=== PATIENT | female | born 1965 | race Two or more races ===

== ENCOUNTER → 2016-07-04 | Outpatient (CLI) | payer BC ==
--- NOTE | 2016-07-04 16:22 | EKG ---
[facility] Measurements Intervals [place] Rate: 64 P: 30 MT: 170 QRS: 21 QRSD: 107 T: 41 QT: 403 QTc: 412 Interpretive Statements SINUS RHYTHM NONSPECIFIC T WAVE CHANGE No previous ECG available for comparison Electronically Signed On 07-04-16 20:43:16 MST by Aaron Boss [id number]
[2016-07-05 15:14] LABS: BASOPHILS # (AUTO) 0.07 10*3/UL; BASOPHILS % (AUTO) 1.1 % (0-1); EOSINOPHILS % (AUTO) 5.9 % (0-8); HEMATOCRIT 41.8 % (37.0-47.0); IMM GRAN % (AUTO) 0.5 % (0-5); IMM GRAN# (AUTO) 0.03 10*3/UL; LYMPHOCYTES # (AUTO) 2.09 10*3/uL; MEAN CORPUSCULAR HGB CONC 33.5 g/dL (33-37); MEAN PLATELET VOLUME 10.3 FL (7.4-12.2); MONOCYTES # (AUTO) 0.64 10*3/UL (0.3-0.8); MONOCYTES % (AUTO) 10.4 % (5-15); NEUTROPHILS # (AUTO) 2.95 10*3/UL; NEUTROPHILS % (AUTO) 48.1 % (50-80); RDW COEFFICIENT OF VARIATION 13.1 % (11.5-14.5); RED BLOOD COUNT 4.51 10^6/uL (4.20-5.40); WHITE BLOOD COUNT 6.14 10^3/uL (4.8-10.8)
[2016-07-05 15:21] LABS: PLATELET MORPHOLOGY COMMENT NORMAL MORPHOLOGY (NORM)
[2016-07-05 15:42] LABS: ASPARTATE AMINO TRANSFERASE 22 IU/L (8-39); BILIRUBIN,TOTAL 0.4 mg/dL (0.3-1.2); BLOOD UREA NITROGEN 16 mg/dL (7-22); CALCIUM 9.6 mg/dL (8.7-10.7); CHLORIDE 100 meq/L (98-112); CREATININE 0.8 mg/dL (0.50-1.20); EST GLOMERULAR FILTRATION > 60 (>60 ml/min/1.73m(2)); GLUCOSE 86 mg/dL (78-110); POTASSIUM 3.7 meq/L (3.8-5.2); SODIUM 138 meq/L (135-145); TOTAL PROTEIN 7.5 g/dL (6.1-8.0)
[2016-07-05 17:04] LABS: FREE T4 (FREE THYROXINE) 0.98 ng/dL (0.93-1.71)
== END ==
LOC: EKG 16:25
PROVIDERS: ATTEND Physician Assistant Medical
DX: R00.2 Palpitations (principal); R42 Dizziness and giddiness; R51 Headache; R06.02 Shortness of breath; I10 Essential (primary) hypertension
CPT/HCPCS: 80053; 84439; 84443; 85025; 93005; 93010

== ENCOUNTER → 2016-09-13 | Outpatient (CLI) | payer BC ==
--- NOTE | 2016-09-13 11:39 | EKG ---
[facility] [place] Measurements Intervals [place] Rate: 155 P: SC: 0 QRS: 34 QRSD: 131 T: 0 QT: 247 QTc: 334 Interpretive Statements UNCERTAIN REGULAR RHYTHM (Possibly Junctional tachycardia or Flutter with 2:1 conduction) INTRAVENTRICULAR CONDUCTION DELAY [130+ ms QRS DURATION] Compared to ECG 07/04/2016 16:27:32 Intraventricular conduction delay now present Sinus rhythm no longer present T-wave abnormality no longer present Electronically Signed On 09-19-16 09:23:09 MDT by Riley Armstrong MD [email or web address]
== END ==
LOC: EKG 09:47
PROVIDERS: ATTEND Physician Assistant Medical
DX: R00.0 Tachycardia, unspecified (principal); I45.89 Other specified conduction disorders
CPT/HCPCS: 93005; 93010

== ENCOUNTER → 2016-11-22 | Outpatient (CLI) | payer BC ==
--- NOTE | 2016-11-22 10:18 | EKG ---
[address] [address] Measurements Intervals [place] Rate: 60 P: 58 NM: 168 QRS: 55 QRSD: 103 T: 40 QT: 414 QTc: 415 Interpretive Statements SINUS RHYTHM Compared to ECG 09/13/2016 09:47:44 Junctional tachycardia no longer present Intraventricular conduction delay no longer present Electronically Signed On 11-22-16 12:51:29 MDT by Aaron Boss [id number]
== END ==
LOC: MOB EKG 10:06
PROVIDERS: ATTEND Surgery
DX: Z01.810 Encounter for preprocedural cardiovascular examination (principal); K80.20 Calculus of gallbladder without cholecystitis without obstruction; I10 Essential (primary) hypertension; Z86.79 Personal history of other diseases of the circulatory system
CPT/HCPCS: 93005; 93010

== ENCOUNTER 2016-11-23 06:48 | Day surgery (SDC) | payer BC ==
[~2016-11-23 06:48] MED LIST: LIDOCAINE W/ SODIUM BICARB 0.5 ML SYR ONE; Lactated Ringers 1,000 ML PRIMARY IV ONE
[2016-11-23 07:03] LABS: URINE SPECIFIC GRAVITY - MAN 1.012
[2016-11-23] MEDS ORDERED: LIDOCAINE MPF 2% - 5 ML (20 MG/1 ML) ONE (07:11)
[2016-11-23] MEDS ORDERED: fentaNYL Inj 250 MCG/5 ML VIAL ONE (07:11)
[2016-11-23] MEDS ORDERED: KETAMINE 100 MG/1 ML - 5 ML ONE (07:11)
[2016-11-23] MEDS ORDERED: MIDAZOLAM 5 MG/1 ML ONE (07:11)
[2016-11-23] MEDS ORDERED: Sodium Chloride 0.9% vial 50 ML ONE (07:12)
[2016-11-23] MEDS ORDERED: BUPIVACAINE 0.25% W/ EPI - 10 ML VIAL ONE (07:12)
[2016-11-23] MEDS ORDERED: Iothalamate Meglumine 30 ML VIAL IV ONE (07:12)
[2016-11-23] MEDS ORDERED: ROCURONIUM 10 MG/1 ML - 5 ML VIAL IVP ONE (07:13)
[2016-11-23] MEDS ORDERED: Lactated Ringers 1,000 ML PRIMARY IV ONE (08:14)
[2016-11-23] MEDS ORDERED: ePHEDrine Inj 50 MG/ML AMP ONE (08:17)
[2016-11-23] MEDS ORDERED: KETOROLAC 30 MG/1 ML VIAL ONE (08:47)
[2016-11-23] MEDS ORDERED: ONDANSETRON 4 MG/2 ML VIAL IVP PRN ×2 (08:52→10:00)
[2016-11-23] MEDS ORDERED: NORMAL SALINE 10 ML SYRINGE FLUSH IVP PRN ×2 (08:52→10:00)
[2016-11-23] MEDS ORDERED: SUGAMMADEX SODIUM 200 MG/2 ML VIAL IV ONE (08:57)
[2016-11-23] MEDS ORDERED: Lactated Ringers 1,000 ML PRIMARY IV SCH ×2 (09:00→10:00)
--- NOTE | 2016-11-23 09:14 | DI ---
XR FLUORO PHYS TIME UP TO 1HR,11/23/2016 8:00 AM: Clinical History: Cholelithiasis. Previous Exam: None at this facility. Findings: 3 views of an intraoperative cholangiogram are obtained demonstrating no evidence of filling defect t hroughout the common bile duct. There is contrast noted within the second portion of the duodenum. Skeletal structures are unremarkable. Impression: Normal intraoperative cholangiogram.
--- NOTE | 2016-11-23 09:20 | GEN.OPNOTE ---
Operative Note Surgery Date: 11/23/16 Preoperative Diagnosis: Cholelithiasis Postoperative Diagnosis: Cholelithiasis with chronic cholecystitis Procedure: Laparoscopic cholecystectomy With intraoperative cholangiogram Surgeon: Larry Kc MD Anesthesia Type: General Estimated Blood Loss (mL): 5 Fluids: Lactated Ringer's please anesthesia notes in EMR Pathology: Gallbladder sent Indications: Symptomatically cholelithiasis Operative Summary: Patient was brought in the operating room. Placed in supine position. Given general anesthetic. Was prepped draped sterile fashion. Quarter percent Marcaine was infiltrated at all trocar sites. Small incision made below the umbilicus. Bluntly dissected to Harpreet Ks tissue to the fascia. Grasped the fascia with Kocur's. Made a midline incision through the fascia. Blunt dissection was carried into the abdominal cavity. A finger was then placed and swept adhesions of omentum sodium intra-abdominal cavity. We then placed the CATHETER IN. THE CAMERA WAS THEN PLACED AND A WINDOW WAS MADE THROUGH THE ADHESIONS SO WE CAN SEE THE LIVER AND THE GALLBLADDER FOSSA. THERE APPEARED TO BE NO INJURY TO THE SMALL INTESTINE OR BOWEL. Under direct laparoscopic visualization a 10 mm trocar subxiphoid and 2 -5 mm in the midclavicular and midaxillary line. Appropriate instrument were placed. Gallbladder grasped at the fundus retracted over the liver edge. Gallbladder was grasped at Ginette' s pouch. The cystic duct was dissected free . The cystic duct was clipped near the gallbladder. Intraoperative cholangiocatheter was placed through an angiocatheter. I then opened up the cystic duct with scissors. Intraoperative cardiogram catheter was placed. C-arm was brought in an intraoperative cholangiogram was then done with the aid of the C-arm. There is no evidence of obstruction of the common bile duct and proper anatomy was identified. The C- arm was removed. The cholangiogram was then removed. The cystic duct was doubly clipped and divided.Likewise the cystic artery was dissected free 3 hemoclips placed and divided. The gallbladder was dissected off liver's edge using electrocautery. The gallbladder was then removed through a subumbilical incision. The abdominal cavity was irrigated until clear. The trochars were removed. The umbilicus incision was closed with 0 Vicryl suture to the fascia. The skin was reapproximated using 4-0 Vicryl simple sutures. The remainder trocar sites were 5 mm defects we will close. The remainder skin incisions closed with 4-0 Vicryl. Steri-Strips applied sterile dressings applied. Patient transferred to recovery room in stable condition. Counts were correct
[2016-11-23] MEDS: HYDROmorphone 2 MG/1 ML IVP PRN ×2 (09:24→09:30)
[2016-11-23] MEDS ORDERED: HYDROmorphone 2 MG/1 ML ONE (09:25)
[2016-11-23] MEDS: fentaNYL Inj 100 MCG/2 ML VIAL IVP PRN ×2 (09:35→09:40)
[2016-11-23] MEDS ORDERED: fentaNYL Inj 100 MCG/2 ML VIAL ONE (09:36)
[2016-11-23 09:43] VITALS: RESP 16
[2016-11-23] MEDS ORDERED: MORPHINE SULFATE 2 MG/1 ML IVP PRN (10:00)
[2016-11-23] MEDS ORDERED: HYDROcodone-APAP 7.5 MG-325 MG TABLET PO PRN (10:00)
[2016-11-23] MEDS ORDERED: HYDROcodone-APAP 7.5 MG-325 MG TABLET PO ONE (10:19)
[2016-11-23] MEDS ORDERED: ONDANSETRON 4 MG/2 ML VIAL ONE (10:47)
[2016-11-23 14:05] VITALS: TEMP 98.2
== END 2016-11-23 13:19 | disposition home or self-care (01) ==
LOC: SDSC 06:48
PROVIDERS: ATTEND Surgery
DX: K80.10 Calculus of gallbladder with chronic cholecystitis without obstruction (principal); I10 Essential (primary) hypertension; Z86.79 Personal history of other diseases of the circulatory system
CPT/HCPCS: 47563; 74300; 84703; A4216; J1885; J2704; J3010 ×2; Q9961; J1170; J2001; J2250; J2405; J7120